=== PATIENT | male | born 1935 | race Caucasian/White ===

== ENCOUNTER 2020-06-08 10:44 | Emergency (ER) | payer MEDICARE, OTHER ==
--- NOTE | 2020-06-08 11:47 | ER Document Report ---
ED General - General Chief Complaint: Problem with Urinary Catheter Stated Complaint: FEEDING TUBE PROBLEM Time Seen by Provider: 06/08/20 11:25 Primary Care Provider: GENE LAMBERT MD [Primary Care Provider] - Follow up as needed - [facility] Notes: Chief complaint: Dislodged percutaneous nephrostomy tubes History of present illness: 85-year-old male longterm resident from [facility] at this time for displaced percutaneous nephrostomy tubes. This gentleman apparently has advanced dementia and pulled out the right-sided tube this morning and partially dislodged a left-sided tube also. He is sent to the emergency department for further evaluation and management. Patient is not able to provide any meaningful history on his own. I have documents from recent hospital stay at [facility] in [facility] available for review. Medical records indicate that Mr. Eller has dementia and has a history of prostatic CA with obstructive uropathy. He had presented for outpatient placement of percutaneous nephrostomy tubes bilaterally at [facility] on 05/22/2020. That time they found that he had a pyelonephritis with apparent septic shock and he was admitted to the medical intensive care unit. He remained at [facility] from 05/22/2020 to 06/04/2020. He was subsequently discharged to [facility]. Nursing staff apparently discovered displaced nephrostomy tubes today and sent him to the emergency department. - Related Data Allergies/Adverse Reactions: No Known Allergies Allergy (Verified 06/08/20 11:01) Past Medical History - General Information source: Outside Facility Records Cannot obtain history due to: Dementia - Social History Smoking Status: Never Smoker Frequency of alcohol use: None Lives with: [employer] Family History: Other - No information available Renal/ Medical History: Reports: Other - Prostatic CA with obstructive uropathy Malignancy Medical History: Reports Hx Prostate Cancer Psychiatric Medical History: Reports: Hx Dementia Past Surgical History: Reports: Hx Abdominal Surgery Review of Systems - Review of Systems -: Yes ROS unobtainable due to patient's medical condition Physical Exam - Vital signs Vitals: Resp 14 06/08/20 10:54 - Notes Notes: GENERAL: Frail elderly male who is obviously severely demented and confabulating otherwise appearing in no acute distress. SKIN: Good turgor no rashes. HEAD: Normocephalic atraumatic. EYES: PERRLA. EOMI. Conjunctivae and sclerae clear. EARS: CANALS AND TMS CLEAR. NOSE: CLEAR. MOUTH: Moist mucosa. Good dentition. No stridor or edema. No drooling. NECK: Supple. No masses or thyromegaly. No adenopathy. Carotids 2+ without bruits. No JVD. BACK: Symmetrical without tenderness. CHEST: Respirations unlabored. Breath sounds clear and symmetrical. HEART: Regular rhythm. No murmur gallop or rub. ABDOMEN: Multiple healed surgical scars present. Patient has a ureterostomy ostium on the right with absence of a drainage tube. On the left t there is a right ureterostomy tube marking indicated 10 cm at the skin. There is some drainage of urine around the tube. Patient is diapered and the diaper is moist. Soft nontender without masses, organomegaly or rebound. Bowel sounds normally active. No bruits. GENITALIA: Normal male EXTREMITIES: No edema. No calf tenderness. Cap refill less than 1.5 seconds. Dorsalis pedis and posterior tibial pulses 3+ and symmetrical. NEUROLOGICAL: GCS 13. Oriented to person only. This is apparently his usual baseline. Moves all 4 extremities symmetrically and follows commands to laboratory chemist my finger. Eyes are open spontaneously. Fluent speech with confabulation cranial nerves II through XII intact. Sensorimotor and cerebellar normal. Normal tone. PSYCHIATRIC: Orientation to person only with confabulation Course - Re-evaluation Re-evalutation: 06/08/20 11:52 Interventional radiology has been paged to see if we can replace the dislodged percutaneous nephrostomy tube and assess the position of the other tube. If we are not able to obtain the services locally I will contact [facility] to coordinate transfer. 06/08/20 13:11 No interventional radiology services available here for the next 48 hours. No local urology services available here. I have spoken with the transfer center at [facility] in [facility]. He has been accepted for transfer by Dr. Reynaga. EMTALA form completed. - Vital Signs Vital signs: Temp Pulse Resp BP Pulse Ox 97.6 F 13 111/57 L 91 L 06/08/20 10:57 06/08/20 11:31 06/08/20 11:31 06/08/20 11:31 - Laboratory Results Result Diagrams: 06/08/20 10:50 06/08/20 10:50 Laboratory Results Interpreted: 06/08/20 06/08/20 10:50 10:50 RBC 3.35 L Hgb 9.4 L Hct 28.7 L RDW 19.2 H Sodium 135.4 L Anion Gap 3 L Creatinine 0.38 L Calcium 7.9 L Alkaline Phosphatase 140 H Total Protein 5.8 L Albumin 2.8 L Critical Laboratory Results Reviewed: Yes Attending or Supervising Physician who Reviewed Labs: PENELOPE DRUMMOND - Radiology Results Critical Radiology Results Reviewed: No Critical Results - EKG Interpretation by Me Additional EKG results interpreted by me: 06/08/20 11:56 Twelve-lead EKG reviewed by me contemporaneously: Indication for study: Undetermined Rhythm: Normal sinus with occasional PVCs Rate: 86 Intervals: Normal QRS axis: -[address]/T wave changes: None Comparison with prior tracing: None Interpretation: Left anterior fascicular block. Occasional PVCs. Discharge - Discharge Clinical Impression: Dislodged percutaneous nephrostomy tubes, Prostate CA Dementia Qualifiers: Dementia type: unspecified type Dementia behavioral disturbance: without behavioral disturbance Qualified Code(s): F03.90 - Unspecified dementia without behavioral disturbance Condition: Good Disposition: [facility] Referrals: GENE LAMBERT MD [Primary Care Provider] - Follow up as needed
[2020-06-08] MEDS ORDERED: NORMAL SALINE 1000 ML 1,000 ML IV ONE (12:26)
[2020-06-08 12:47] LABS: ALBUMIN 2.8 g/dL (3.5-5.0); ALKALINE PHOSPHATASE 140 U/L (38-126); ASPARTATE AMINO TRANSFERASE 26 U/L (17-59); BILIRUBIN,DIRECT 0.2 mg/dL (0.0-0.4); BILIRUBIN,TOTAL 0.3 mg/dL (0.2-1.3); BLOOD UREA NITROGEN 13 mg/dL (7-20); CALCIUM 7.9 mg/dL (8.4-10.2); GLUCOSE 78 mg/dL (75-110); POTASSIUM 3.6 mmol/L (3.6-5.0); TOTAL PROTEIN 5.8 g/dL (6.3-8.2)
[2020-06-08 12:49] LABS: ABSOLUTE BASOPHILS # (AUTO) 0.1 10^3/uL (0.0-0.2); ABSOLUTE EOSINOPHILS # (AUTO) 0.2 10^3/uL (0.0-0.6); ABSOLUTE LYMPHOCYTES (AUTO) 1.2 10^3/uL (0.5-4.7); ABSOLUTE MONOCYTES (AUTO) 0.3 10^3/uL (0.1-1.4); ABSOLUTE NEUT (AUTO) 2.7 10^3/uL (1.7-8.2); BASOPHILS % (AUTO) 1.2 % (0-2); EOSINOPHILS % (AUTO) 4.1 % (0-6); HEMATOCRIT 28.7 % (37.9-51.0); HEMOGLOBIN 9.4 g/dL (13.5-17.0); MEAN CORPUSCULAR HEMOGLOBIN 27.9 pg (27.0-33.4); MEAN CORPUSCULAR HGB CONC 32.6 g/dL (32.0-36.0); MEAN CORPUSCULAR VOLUME 85 fl (80-97); MONOCYTES % (AUTO) 7.2 % (3-13); PLATELET COUNT 240 10^3/uL (150-450); RED BLOOD COUNT 3.35 10^6/uL (4.35-5.55); RED CELL DISTRIBUTION WIDTH 19.2 % (11.5-14.0); SEGMENTED NEUTROPHILS % (AUTO) 60.5 % (42-78); TOTAL CELLS COUNTED % (AUTO) 100 %; WHITE BLOOD COUNT 4.4 10^3/uL (4.0-10.5)
[2020-06-08 12:52] LABS: CARBON DIOXIDE 29 mmol/L (22-30); CHLORIDE 103 mmol/L (98-107)
[2020-06-08 12:53] LABS: ANION GAP 3 (5-19)
[2020-06-08] MEDS ORDERED: HALOPERIDOL LACTATE INJ 5 MG/1 ML VIAL IM ONE ×2 (14:09→16:28)
[2020-06-08 17:00] VITALS: BP 118/68
--- NOTE | 2020-06-08 18:51 | EKG REPORT ---
SEVERITY:- ABNORMAL ECG - SINUS RHYTHM VENTRICULAR PREMATURE COMPLEX LEFT ANTERIOR FASCICULAR BLOCK : Confirmed by: Ricki Nguyen MD 08-Jun-2020 18:51:01
== END 2020-06-08 16:37 | disposition short-term general hospital (02) ==
LOC: ER 10:44
DX: N99.528 Other complication of incontinent external stoma of urinary tract (principal); F03.90 Unspecified dementia, unspecified severity, without behavioral disturbance, psychotic disturbance, mood disturbance, and anxiety; C61 Malignant neoplasm of prostate
CPT/HCPCS: 93005; 99285; 36415; 85025; 0241U ×4; 80053; 93010; J1630; J7030; C9803